=== PATIENT | male | born 1990 | race Caucasian/White ===

== ENCOUNTER 2025-04-03 09:53 | Outpatient (CLI) | payer SELFPAY ==
--- NOTE | ~2025-04-03 | MR_ITS ---
MRI of the left knee Clinical history: Pain Technique: Coronal proton density and proton density-weighted images, sagittal proton-density and T2 fat-sat images, and axial proton-density fat-saturated images were acquired. Findings: Anterior and posterior cruciate ligaments are intact. Medial collateral ligament and the la teral collateral ligament complex are intact. Popliteus tendon is intact. Medial and lateral menisci are intact, without evidence of tear. There is focal moderate to high-grade chondromalacia along the medial patellar facet. Remaining artic ular cartilage throughout the knee is well preserved. Bone marrow signals are unremarkable. Extensor mechanism is intact. No joint effusion or Castanon's cyst. 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 Reviewed, dictated and finalized at location M. 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
== END 2025-04-03 09:54 | disposition home or self-care (01) ==
PROVIDERS: PCP Orthopaedic Surgery; Visit Provider Orthopaedic Surgery
DX: M22.42 Chondromalacia patellae, left knee (principal)
CPT/HCPCS: 73721